=== PATIENT | female | born 1975 | race Caucasian/White ===

== ENCOUNTER 2020-10-04 15:28 | Emergency (ER) | payer OTHER, SELFPAY ==
[2020-10-04 15:29] VITALS: BP 148/96; PULSE 103; RESP 16; TEMP 36.8; O2SAT 98; BMI 32.8
--- NOTE | 2020-10-04 15:37 | NURSING ---
NO OLD EKGS
--- NOTE | 2020-10-04 15:38 | NURSING ---
NO OLD EKGS
[2020-10-04 16:31] VITALS: PULSE 95
--- NOTE | 2020-10-04 16:53 | EKG12_ITS ---
Test Reason : CP Blood Pressure : / mmHG Vent. Rate : 100 BPM Atrial Rate : 100 BPM P-R Int : 166 ms QRS Dur : 086 ms QT Int : 336 ms P-R-T Axes : 058 054 019 degrees QTc Int : 433 ms Normal sinus rhythm Nonspecific ST abnormality Abnormal ECG Confirmed by AIYANA FITZPATRICK, KAYLA ([id number]), book or script editor ADAMARIS ROOT ([id number]) on 10/07/2020 12:46:52 PM Referred By: NEETA Confirmed By:KAYLA BRONSON MD
--- NOTE | 2020-10-04 16:54 | ED.VIS.CHEST ---
HPI History of Present Illness Chief Complaint: Palpitations Narrative Narrative: Patient presents with palpitations that lasted about 20 minutes. She has had 4 episodes of palpitations in the last 4 to 5 months. She felt lightheaded with them, she took her pulse and thought it was around 180. She is now resolved and is asymptomatic. No fever or chills no recent massive amounts of caffeine, no signs or symptoms of hyperthyroidism like weight loss lack of sleep or anxiety. [facility] Medical History (Updated 10/04/20 @ 17:[address] Lm Erwin MD) delivery delivered Cholecystectomy planned Home Medications NK 10/04/20 [History Last Taken Unknown] Allergy/AdvReac Type Severity Reaction Status Date / Time erythromycin base AdvReac Laryngospas Verified 10/04/20 15:35 ms Penicillins [PCN] AdvReac Laryngospas Verified 10/04/20 15:35 ms Social History (System 10/15/18 @ 10:51 by Maritza Ryan) Smoking Status: Former smoker ROS ROS ED ROS Narrative Past medical history: Reviewed Medications: Reviewed Social history: Noncontributory Review of systems: All systems negative except as indicated General: No fever Eyes: No visual changes ENT: No upper airway congestion, normal voice Neck: No neck pain Cardiovascular: No chest pain. Palpitations as in HPI Respiratory: No shortness of breath or cough Gastrointestinal: No abdominal pain, nausea vomiting or diarrhea Genitourinary: No dysuria Musculoskeletal: Denies myalgias no difficulty with ambulation Skin: No rash Neurological: No memory loss, confusion or any focal weakness Psych: No recent behavioral changes Hematologic: No easy bleeding or easy bruising EXAM Physical Exam Narrative Exam Narrative: Physical exam General: Well nourished, Well developed, No Acute Distress Head: Normocephalic, Atraumatic Eyes: Conjunctiva not pale ENT: Moist mucous membranes Neck: Supple, Nontender, No lymphadenopathy Cardiovascular: Regular rate, Regular rhythm Respiratory: No distress, CTA bilaterally Abdomen: Soft, Nontender, Nondistended Back: Nontender, Normal Inspection. Negative for: CVA tenderness Extremities: Nontender, No edema Skin: Normal color, No rash Neurological: Alert, Normal Strength, Normal Sensation Psychological: Normal affect Const Vital Signs: 10/04/20 15:29 10/04/20 15:32 10/04/20 16:31 Temperature 98.2 F Temperature Source Oral Pulse Rate 103 H 95 Respiratory Rate 16 Respiratory Effort Normal Respiratory Pattern Normal Blood Pressure 148/96 H Blood Pressure Mean 113 Pulse Ox 98 Oxygen Delivery Method Room Air 10/04/20 16:55 Temperature Temperature Source Pulse Rate 92 Respiratory Rate 16 Respiratory Effort Respiratory Pattern Blood Pressure 117/79 Blood Pressure Mean 91 Pulse Ox 98 Oxygen Delivery Method Room Air MDM MDM Lab Data Lab results narrative: Patient appears well. She has an unremarkable work-up. I will set her up with a Holter monitor today, and follow-up with cardiology in 2 days for results. Labs: Laboratory Results - last 24 hr 10/04/20 10/04/20 15:35 15:35 WBC 10.4 RBC 4.28 Hgb 12.3 Hct 39.0 MCV 91.1 MCH 28.7 MCHC 31.5 L RDW Std Deviation 41.9 RDW Coeff of Anna 12.8 Plt Count 315 MPV 10.9 Immature Gran % (Auto) 0.300 Neut % (Auto) 62.3 Lymph % (Auto) 27.6 [place] % (Auto) 6.5 Eos % (Auto) 2.5 Baso % (Auto) 0.8 Absolute Neuts (auto) 6.5 Absolute Lymphs (auto) 2.88 Nucleated RBC % 0 Sodium 138 Potassium 3.7 Chloride 104 Carbon Dioxide 26.0 Anion Gap 8 BUN 15 Creatinine 1.02 Estim Creat Clear Calc 59.51 Est GFR (MDRD) Af Amer 75 Est GFR (MDRD) Non-Af 62 BUN/Creatinine Ratio 14.7 Glucose 131 H Calcium 9.0 Total Bilirubin 0.30 AST 31 ALT 45 Alkaline Phosphatase 87 Troponin I High Sens 3.1 Total Protein 8.6 H Albumin 4.0 Globulin 4.6 H Albumin/Globulin Ratio 0.9 TSH 3.19 EKG Initial EKG: Comments: Sinus rhythm with a rate of 100. Normal TN and QTc intervals. No ischemic changes. Interpreted by emergency doctor Discharge Plan Triage Chief Complaint: Palpitations ED Provider: Lm Erwin Dx/Rx/DC Orders Clinical Impression: Heart palpitations Instructions: ED Palpitations Prescriptions: No Action NK RF: 0 Referrals: THALIA RAO [Other] Bradly Guardado MD [STAFF PHYSICIAN] - 2 Days Dane Pool MD [STAFF PHYSICIAN] - 2 Days Disposition Disposition: Home, Self Care
[2020-10-04 16:55] VITALS: BP 117/79; PULSE 92; RESP 16; O2SAT 98
[2020-10-04 17:06] LABS: Absolute Lymphocyte Count 2.88 X10^3/uL (0.83-4.51); Absolute Neutrophil Count 6.5 X10^3/uL (2.0-7.7); Basophil# 0.08 X10^3/uL; Basophil% 0.8 % (0-1); Eosinophil# 0.26 X10^3/uL; Eosinophils% 2.5 % (0-5); Hemoglobin 12.3 g/dL (12.0-15.0); Lymphocyte # 2.88 X10^3/ul (0.83-4.51); Lymphocyte % 27.6 % (19-41); Mean Corp Hgb Conc 31.5 g/dL (32-36); Mean Corpuscular Hgb 28.7 pg (27.0-32.0); Mean Corpuscular Volume 91.1 fL (81-99); Mean Platelet Vol. 10.9 fl (6.2-12.0); Monocyte# 0.68 X10^3/uL; Monocyte% 6.5 % (0-10); NRBC Flagged by Analyzer 0 % (0-5); Neutrophil # 6.51 X10^3/uL (2.7-7.7); Neutrophil % 62.3 % (47-70); Platelet Count 315 K/mm3 (150-450); RBC Distribution Width CV 12.8 % (11.6-14.6); RBC Distribution Width SD 41.9 fl (35.1-43.9); Red Blood Count 4.28 M/mm3 (4.2-5.4); White Blood Count 10.4 K/mm3 (4.4-11.0)
[2020-10-04 17:36] LABS: ALB/GLOB Ratio 0.9 RATIO (0.9-2.4); AST(SGOT) 31 U/L (15-37); Alanine Aminotransfer ALT/SGPT 45 U/L (13-56); Alkaline Phosphatase 87 U/L (45-117); Anion Gap 8 (5-15); BUN 15 mg/dL (7-18); BUN/Creat Ratio 14.7 RATIO (10-20); Chloride 104 mmol/L (98-107); Creatinine, Serum 1.02 mg/dL (0.55-1.02); EST Glomerular Filtration Rate 62 mL/min (>60); Est Glom Filt Rate - Afr Amer 75 mL/min (>60); Estimated Creatinine Clearance 59.51 ml/min; Globulin 4.6 g/dL (2.2-4.2); Glucose 131 mg/dL (74-106); Potassium 3.7 mmol/L (3.5-5.1); Protein, Total 8.6 g/dL (6.4-8.2); Sodium Level 138 mmol/L (136-145); Thyroid Stim Hormone (TSH) 3.19 uIU/mL (0.358-3.74); Troponin-I HS 3.1 pg/mL (3.0-53.7)
[2020-10-04 18:14] VITALS: PULSE 100; RESP 18; O2SAT 95
== END 2020-10-04 18:16 | disposition home or self-care (01) ==
PROVIDERS: Emergency Provider Emergency Medicine
DX: R00.2 Palpitations (principal); Z87.891 Personal history of nicotine dependence
CPT/HCPCS: 80053; 84443; 84484; 85025; 93005; 93225; 99283; J7040

== ENCOUNTER → 2020-10-04 17:57 | Outpatient (CLI) | payer OTHER, SELFPAY ==
[2020-10-04 15:29] VITALS: BMI 32.8
== END ==
PROVIDERS: Visit Provider Emergency Medicine
DX: R69 Illness, unspecified (principal)

== ENCOUNTER 2022-07-13 13:24 | Emergency (ER) | payer OTHER, SELFPAY ==
[2022-07-13 13:25] VITALS: TEMP 36.7; BMI 34.4
[2022-07-13] MEDS: Adenosine 6 MG/2 ML Syringe IV (13:30)
[2022-07-13] MEDS: 0.9% Normal Saline 1,000 ML 1000 ML IV (13:30)
[2022-07-13 13:31] VITALS: BP 138/104; PULSE 215; RESP 16; O2SAT 100
[2022-07-13] MEDS: Adenosine 6 MG/2 ML Syringe 12 MG IV (13:32)
--- NOTE | 2022-07-13 13:33 | ED.RN ---
1332: Adenosine 6mg given. HR 212 1334: Adenosine 12mg given. HR 140 Normal sinus rhythm. 1335: Repeat EKG. HR 106
--- NOTE | 2022-07-13 13:38 | EKG12_ITS ---
Test Reason : SVT Blood Pressure : / mmHG Vent. Rate : 199 BPM Atrial Rate : 093 BPM P-R Int : 000 ms QRS Dur : 074 ms QT Int : 234 ms P-R-T Axes : 000 064 -38 degrees QTc Int : 425 ms Supraventricular tachycardia Marked ST abnormality, possible inferior subendocardial injury Marked ST abnormality, possible anterolateral subendocardial injury Abnormal ECG Confirmed by HEATHER FITZPATRICK, JUAN ([id number]), purchasing expeditor ADAMARIS ROOT ([id number]) on 07/17/2022 11:40:21 AM Referred By: MARISSA Confirmed By:JUAN ROMERO MD
--- NOTE | 2022-07-13 13:39 | EKG12_ITS ---
Test Reason : SVT Blood Pressure : / mmHG Vent. Rate : 114 BPM Atrial Rate : 114 BPM P-R Int : 170 ms QRS Dur : 084 ms QT Int : 306 ms P-R-T Axes : 053 059 029 degrees QTc Int : 421 ms Sinus tachycardia Nonspecific ST abnormality Abnormal ECG When compared with ECG of 13-JUL-2022 13:27, MANUAL COMPARISON REQUIRED, DATA IS UNCONFIRMED Confirmed by HEATHER FITZPATRICK, JUAN ([id number]), photography editor ADAMARIS ROOT ([id number]) on 07/18/2022 10:23:05 AM Referred By: MARISSA Confirmed By:JUAN ROMERO MD
[2022-07-13 13:50] VITALS: BP 145/92; PULSE 98; RESP 14; O2SAT 97
[2022-07-13 13:50] LABS: Absolute Lymphocyte Count 2.53 X10^3/uL (0.83-4.51); Absolute Neutrophil Count 4.6 X10^3/uL (2.0-7.7); Basophil# 0.05 X10^3/uL; Basophil% 0.6 % (0-1); Eosinophil# 0.17 X10^3/uL; Eosinophils% 2.1 % (0-5); Hematocrit 32.6 % (37-47); Hemoglobin 10.6 g/dL (12.0-15.0); Lymphocyte # 2.53 X10^3/ul (0.83-4.51); Lymphocyte % 31.9 % (19-41); Mean Corp Hgb Conc 32.5 g/dL (32-36); Mean Corpuscular Hgb 28.6 pg (27.0-32.0); Mean Corpuscular Volume 87.9 fL (81-99); Mean Platelet Vol. 9.9 fl (6.2-12.0); Monocyte# 0.54 X10^3/uL; Monocyte% 6.8 % (0-10); NRBC Flagged by Analyzer 0 % (0-5); Neutrophil # 4.62 X10^3/uL (2.7-7.7); Neutrophil % 58.3 % (47-70); Platelet Count 193 K/mm3 (150-450); RBC Distribution Width CV 13.8 % (11.6-14.6); RBC Distribution Width SD 43.5 fl (35.1-43.9); Red Blood Count 3.71 M/mm3 (4.2-5.4); White Blood Count 7.9 K/mm3 (4.4-11.0)
[2022-07-13 14:04] VITALS: BP 127/86; PULSE 96; RESP 12; O2SAT 98
[2022-07-13 14:08] LABS: ALB/GLOB Ratio 0.9 RATIO (0.9-2.4); AST(SGOT) 22 U/L (15-37); Alanine Aminotransfer ALT/SGPT 32 U/L (13-56); Albumin, Serum 3.8 g/dL (3.2-5.0); Alkaline Phosphatase 84 U/L (45-117); Anion Gap 9 (5-15); BUN 16 mg/dL (7-18); BUN/Creat Ratio 17.6 RATIO (10-20); Calcium,Total 9.2 mg/dL (8.5-10.1); Chloride 107 mmol/L (98-107); Creatinine, Serum 0.91 mg/dL (0.55-1.02); EST Glomerular Filtration Rate 70 mL/min (>60); Est Glom Filt Rate - Afr Amer 85 mL/min (>60); Estimated Creatinine Clearance 65.29 ml/min; Globulin 4.4 g/dL (2.2-4.2); Glucose 119 mg/dL (74-106); Potassium 3.8 mmol/L (3.5-5.1); Protein, Total 8.2 g/dL (6.4-8.2); Sodium Level 138 mmol/L (136-145); Troponin-I HS (w/2H Reflex) < 3 pg/mL (3.0-54.0)
--- NOTE | 2022-07-13 14:14 | EDS_ITS ---
HPI History of Present Illness Chief Complaint: Palpitations Informant: patient and EMS Onset/Context/Timing Onset: Today Context: Sudden Onset Timing: Continuous Quality: Heart racing Location: Chest Worsened by: Nothing Relieved by: Nothing Narrative Narrative: Patient presents with palpitations that began today while she was at work. Patient states she felt her heart racing. Patient states she tried to do some vagal maneuvers without success. Patient states she has a history of SVT but is usually able to bring herself out of it before she has to come to the hospital. Patient states that today her palpitations lasted longer and she had to call EMS. Patient denies any shortness of breath. Patient denies any nausea or vomiting. Patient admits to some mild pain in the back of her neck and upper back when this started. Patient states this has resolved. EMS was unable to establish an IV and therefore did not give her any medications. [facility] Medical History delivery delivered Cholecystectomy planned Depression SVT (supraventricular tachycardia) Home Medications NK 10/04/20 [History Last Taken Unknown] Allergy/AdvReac Type Severity Reaction Status Date / Time erythromycin base AdvReac Laryngospas Verified 10/04/20 15:35 ms Penicillins [PCN] AdvReac Laryngospas Verified 10/04/20 15:35 ms Social History Smoking Status: Former smoker ROS ROS ED Constitutional Constitutional ED: Denies chills or fever(s) Eyes Eyes: Denies blurry vision or change in vision ENT ENT ED: Denies rhinorrhea or sore throat Cardiovascular Cardiovascular: Reports palpitations and racing heartbeat; Denies chest pain Respiratory/Chest Respiratory/Chest: Denies cough or dyspnea Gastrointestinal Gastrointestinal: Denies nausea or vomiting Genitourinary Genitourinary ED: Denies dysuria or hematuria Musculoskeletal Musculoskeletal: Denies back pain or neck pain Integumentary Denies abscess or rash Neurologic Neurologic: Denies headache(s) or weakness Allergic/Immunologic Allergic/Immunologic ED: Denies mouth swelling or urticaria EXAM Physical Exam Const Vital Signs: 07/13/22 13:25 07/13/22 13:31 07/13/22 13:40 Temperature 98.1 F Temperature Source Oral Pulse Rate 215 H Respiratory Rate 16 Blood Pressure 138/104 H Blood Pressure Mean 115 Pulse Ox 100 Oxygen Delivery Method Room Air Room Air 07/13/22 13:50 07/13/22 14:04 07/13/22 15:54 Temperature Temperature Source Pulse Rate 98 96 Respiratory Rate 14 12 Blood Pressure 145/92 H 127/86 H 183/54 H Blood Pressure Mean 109 99 Pulse Ox 97 98 Oxygen Delivery Method Room Air Room Air Positive well nourished and well developed General Appearance ED: well developed HEENT Reports moist mucous membranes Neck supple and no JVD Resp normal respiratory effort and clear to auscultation bilaterally Cardio regular rhythm Rate: tachycardic GI normal to inspection, nondistended, normoactive bowel sounds and non-tender Palpation: soft Extremity normal to inspection General Extremety ED: Negative for edema or tenderness General Extremity: Negative for edema Neuro oriented x3, CN's II-XII intact bilaterally and no sensory deficits noted Sensorium / Orientation: alert Motor Exam: strength 5/5 throughout Psych mental status grossly normal Skin no rashes or lesions noted MDM MDM MDM Narrative Medical decision making narrative: Differential diagnosis includes SVT, cardiac ischemia, atrial fibrillation with rapid ventricular response, electrolyte abnormality, and pulmonary embolism. EKG will be obtained to assess for cardiac dysrhythmia and cardiac ischemia. CBC will be obtained to assess for anemia and leukocytosis. Comprehensive metabolic profile will be obtained to assess for hepatic function, renal function, and electrolyte abnormality. High-sensitivity troponin will be obtained to assess for cardiac ischemia. D-dimer will be obtained to assess for pulmonary embolism. Lab Data Attestation: I reviewed the patient's lab results. Lab results narrative: CBC was reviewed and was within normal limits. Comprehensive metabolic profile was reviewed and was within normal limits. High-sensitivity troponin was reviewed and was normal at less than 3. D-dimer was reviewed and was less than 0.27. Labs: Laboratory Results - last 24 hr 07/13/22 07/13/22 07/13/22 13:41 13:41 13:41 WBC 7.9 RBC 3.71 L Hgb 10.6 L Hct 32.6 L MCV 87.9 MCH 28.6 MCHC 32.5 RDW Std Deviation 43.5 RDW Coeff of Anna 13.8 Plt Count 193 MPV 9.9 Immature Gran % (Auto) 0.300 Neut % (Auto) 58.3 Lymph % (Auto) 31.9 [place] % (Auto) 6.8 Eos % (Auto) 2.1 Baso % (Auto) 0.6 Absolute Neuts (auto) 4.6 Absolute Lymphs (auto) 2.53 Nucleated RBC % 0 D-Dimer Quant (PE/DVT) Cancelled Sodium 138 Potassium 3.8 Chloride 107 Carbon Dioxide 22.0 Anion Gap 9 BUN 16 Creatinine 0.91 Estim Creat Clear Calc 65.29 Est GFR (MDRD) Af Amer 85 Est GFR (MDRD) Non-Af 70 BUN/Creatinine Ratio 17.6 Glucose 119 H Calcium 9.2 Total Bilirubin 0.30 AST 22 ALT 32 Alkaline Phosphatase 84 Troponin I High Sens < 3 L Total Protein 8.2 Albumin 3.8 Globulin 4.4 H Albumin/Globulin Ratio 0.9 07/13/22 07/13/22 07/13/22 14:08 15:00 15:00 WBC RBC Hgb Hct MCV MCH MCHC RDW Std Deviation RDW Coeff of Anna Plt Count MPV Immature Gran % (Auto) Neut % (Auto) Lymph % (Auto) [place] % (Auto) Eos % (Auto) Baso % (Auto) Absolute Neuts (auto) Absolute Lymphs (auto) Nucleated RBC % D-Dimer Quant (PE/DVT) Cancelled < 0.27 L Sodium Potassium Chloride Carbon Dioxide Anion Gap BUN Creatinine Estim Creat Clear Calc Est GFR (MDRD) Af Amer Est GFR (MDRD) Non-Af BUN/Creatinine Ratio Glucose Calcium Total Bilirubin AST ALT Alkaline Phosphatase Troponin I High Sens 25 Total Protein Albumin Globulin Albumin/Globulin Ratio EKG Initial EKG: Attestation: I personally reviewed and interpreted this EKG as follows: Interpretation: SVT (199) and Non-Specific ST Changes Comments: EKG was obtained. On my independent interpretation, it shows supraventricular tachycardia with a rate of 199. QRS interval was normal. QTc interval was normal at 425 ms. [place] was normal at 64. There is ST depression in the inferior and lateral leads. This is likely rate related. Prior EKG tracings: available for review Prior: Changed (Compared to previous EKG dated 10/04/2020, the SVT is new.) Follow-up EKG: Attestation: I personally reviewed and interpreted this EKG as follows: Interpretation: Sinus Tachycardia (114) Comments: EKG was obtained. On my independent interpretation, it showed a sinus tachycardia with a rate of 114. [place] interval, QRS interval, and QTc intervals were all normal. [place] was normal. There are nonspecific ST-T wave changes. Prior: Unchanged (10/04/2020) Treatment and Re-Evaluation :: Patient was given adenosine 6 mg IV. Patient's heart rate slowed down briefly and then returned to SVT. Patient was given adenosine 12 mg IV. Patient did convert to a sinus tachycardia after this. Heart rate was 150 initially. Patient was given IV fluids. Repeat EKG was obtained and showed a heart rate of 114. Patient was feeling better on reevaluation. Patient was advised of her findings. Patient had no further episodes of SVT. Patient was instructed to follow-up with her primary care physician in 5 to 7 days. 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 Patient was instructed return if worse in any way. Patient understood and was agreeable with the plan. All questions were answered. Critical Care Time Critical Care Time: Yes Critical care time (excluding procedures): 30-74 minutes (31), Including time spent:, Discussing w/Patient &/or Family/Rock Room Worker, Discussing w/Consultants, Arranging Admission or Transfer and Performing Direct Patient Care at Bedside Discharge Plan Triage Chief Complaint: Palpitations ED Provider: Nick Garcia Dx/Rx/DC Orders Clinical Impression: SVT (supraventricular tachycardia), Heart palpitations Instructions: ED Understanding Supraventricular Tachycardia (SVT) Prescriptions: No Action NK Primary Care Provider: THALIA RAO Referrals: THALIA RAO [Other] - 5-7 Days Disposition Disposition: Home, Self Care Discharge Date/Time: 07/13/22 16:01
[2022-07-13 15:36] LABS: D-Dimer Quantitative (DVT/PE) < 0.27 FEU/ug/m (0.27-0.49)
[2022-07-13 15:46] LABS: Reflex Troponin-HS? (from REC) Y
[2022-07-13 15:54] VITALS: BP 183/54
[2022-07-13 16:19] LABS: Troponin-I HS 25 pg/mL (3.0-54.0)
== END 2022-07-13 16:01 | disposition home or self-care (01) ==
PROVIDERS: Emergency Provider Emergency Medicine; Visit Provider Emergency Medicine
DX: I47.1 Supraventricular tachycardia (principal); Z87.891 Personal history of nicotine dependence
CPT/HCPCS: 36415; 80053; 84484; 85025; 85379; 93005; 96361; 96374; 99285; J7030; A4216; J0153